=== PATIENT | female | born 1955 | race Caucasian/White ===

== ENCOUNTER 2024-10-16 16:46 | Inpatient (IN) | payer MEDICARE ==
[~2024-10-16] VITALS: Ht 165.1 cm; Wt 83.0 kg
[2024-10-16] MEDS ORDERED: LIDOCAINE 1%-EPI 1:100,000 20 ML VIAL ONE (17:49)
[2024-10-16] MEDS ORDERED: ACETAMINOPHEN ES 500 MG TABLET ONE (17:49)
[2024-10-16] MEDS ORDERED: TDAP [DIPH/PERTUSSIS/TET] 0.5 ML VIAL IM ONE (17:50)
[2024-10-16] MEDS: ACETAMINOPHEN ES 500 MG TABLET PO ONE (18:04)
[2024-10-16] MEDS: TDAP [DIPH/PERTUSSIS/TET] 0.5 ML VIAL IM ONE (18:06)
[2024-10-16] MEDS: LIDOCAINE 1%-EPI 1:100,000 20 ML VIAL TP ONE (18:08)
[2024-10-16] MEDS: LIDOCAINE HCL/PF 1% 30 ML VIAL TP ONE (18:30)
[2024-10-16] MEDS ORDERED: LIDOCAINE 1% INJ 50 ML MDV IJ ONE (19:45)
[2024-10-16 20:09] LABS: EOSINOPHILS % (AUTO) 0.2 % (0.0-6.0); HEMATOCRIT 40 % (33-45); HEMOGLOBIN 13.6 g/dL (11.5-14.8); LYMPHOCYTES # (AUTO) 0.3 K/uL (0.8-4.8); MEAN CORPUSCULAR HEMOGLOBIN 30 PG (26.0-33.0); MEAN CORPUSCULAR HGB CONC 34 g/dl (31.0-36.0); MEAN CORPUSCULAR VOLUME 88 fL (82-100); MONOCYTES # (AUTO) 1.1 K/uL (0.1-1.30); MONOCYTES % (AUTO) 7.1 % (2.0-12.0); NEUTROPHILS # (AUTO) 13.8 K/uL (1.8-8.9); NEUTROPHILS % (AUTO) 90.7 % (43.0-81.0); PLATELET COUNT (AUTO) 203 K/uL (150-450); RED CELL DISTRIBUTION WIDTH 12.8 % (11.5-15.0); WHITE BLOOD COUNT (AUTO) 15.2 K/uL (4.3-11.0)
[2024-10-16 20:21] LABS: CALCIUM, SERUM 8.6 mg/dL (8.5-10.1); CARBON DIOXIDE 32 mmol/L (21-32); CHLORIDE 99 mmol/L (98-107); CREATININE 1.1 mg/dL (0.6-1.3); GLUCOSE 128 mg/dL (74-106); SODIUM SERUM 135 mmol/L (136-145); UREA NITROGEN, BLOOD 23 mg/dL (7-18)
[2024-10-16 20:34] LABS: NT-PRO BNP 1282 pg/mL (0-125)
[2024-10-16 20:40] LABS: POTASSIUM 2.6 mmol/L (3.5-5.1)
[2024-10-16] MEDS: POTASSIUM CL. PREMIX PERIPHER. 50 ML IV SCH (21:15)
[2024-10-16] MEDS: POTASSIUM CHLORIDE 20 MEQ TAB.PRT.SR PO ONE (21:15)
[2024-10-16] MEDS ORDERED: ONDANSETRON HCL/PF 4 MG/2 ML VIAL IVP PRN (23:00)
[2024-10-16] MEDS ORDERED: MAG HYDROX/AL HYDROX/SIMETH 30 ML UDC PO PRN (23:00)
[2024-10-16] MEDS: IPRATROPIUM NEB FS 0.5 MG/2.5 ML AMPUL.NEB NEB ONE (23:15)
[2024-10-16] MEDS: ALBUTEROL FS 2.5 MG/3 ML VIAL.NEB NEB ONE (23:15)
[2024-10-16 23:20] VITALS: O2SAT 94
[2024-10-16] MEDS ORDERED: IPRATROPIUM NEB FS 0.5 MG/2.5 ML AMPUL.NEB ONE (23:20)
[2024-10-16] MEDS ORDERED: ALBUTEROL FS 2.5 MG/3 ML VIAL.NEB ONE (23:20)
[2024-10-16 23:35] VITALS: O2SAT 99
[2024-10-17] VITALS (7 sets, daily range): BP systolic 119–144; BP diastolic 64–94; TEMP 97.5–99.1; O2SAT 96–99
[2024-10-17] MEDS: ENOXAPARIN SODIUM 40 MG/0.4 ML DISP.SYRIN SQ SCH ×2 (01:30→21:19)
[2024-10-17] MEDS: HYDROCODONE/APAP 5/325MG TABLET PO PRN (01:57)
[2024-10-17 06:02] LABS: BASOPHILS % (AUTO) 0.5 % (0.0-2.0); EOSINOPHILS % (AUTO) 0.2 % (0.0-6.0); HEMATOCRIT 38 % (33-45); HEMOGLOBIN 12.8 g/dL (11.5-14.8); LYMPHOCYTES # (AUTO) 0.7 K/uL (0.8-4.8); LYMPHOCYTES % (AUTO) 7.6 % (20.0-44.0); MEAN CORPUSCULAR HEMOGLOBIN 30 PG (26.0-33.0); MEAN CORPUSCULAR HGB CONC 34 g/dl (31.0-36.0); MEAN CORPUSCULAR VOLUME 89 fL (82-100); MONOCYTES # (AUTO) 0.9 K/uL (0.1-1.30); MONOCYTES % (AUTO) 10.2 % (2.0-12.0); NEUTROPHILS # (AUTO) 7.3 K/uL (1.8-8.9); NEUTROPHILS % (AUTO) 81.5 % (43.0-81.0); PLATELET COUNT (AUTO) 191 K/uL (150-450); RED BLOOD CELL COUNT(AUTO) 4.24 MIL/uL (4.0-5.2); RED CELL DISTRIBUTION WIDTH 13.1 % (11.5-15.0); WHITE BLOOD COUNT (AUTO) 8.9 K/uL (4.3-11.0)
[2024-10-17] MEDS: AZITHROMYCIN 250 MG TABLET PO ONE (06:24)
[2024-10-17] MEDS: ACETAMINOPHEN 325 MG TABLET PO PRN (06:29)
[2024-10-17] MEDS ORDERED: IPRATROPIUM NEB FS 0.5 MG/2.5 ML AMPUL.NEB NEB PRN (06:30)
[2024-10-17] MEDS ORDERED: ALBUTEROL SULFATE 8 GM HFA.AER.AD IH PRN (06:30)
[2024-10-17] MEDS ORDERED: IPRATROPIUM BROMIDE 14 GM INHALER (or 12.9 GM) IH PRN (06:30)
[2024-10-17 07:06] LABS: CALCIUM, SERUM 8.2 mg/dL (8.5-10.1); CREATININE 1.3 mg/dL (0.6-1.3); MAGNESIUM 2.4 mg/dL (1.8-2.4); PHOSPHORUS 3.9 mg/dL (2.5-4.9); POTASSIUM 3.3 mmol/L (3.5-5.1)
[2024-10-17] MEDS ORDERED: HYDR25TA4 PO (08:28)
[2024-10-17] MEDS ORDERED: AMLO-212 PO (08:28)
[2024-10-17] MEDS: POTASSIUM CHLORIDE 20 MEQ TAB.PRT.SR PO ONE (09:19)
[2024-10-17] MEDS: AMLODIPINE BESYLATE 5 MG TABLET PO SCH (09:20)
[2024-10-18] VITALS: BP 130/90; TEMP 98.1; O2SAT 98
[2024-10-18 04:00] VITALS: BP 154/86; TEMP 98.1; O2SAT 93
[2024-10-18] MEDS: AZITHROMYCIN 250 MG TABLET PO SCH (06:10)
[2024-10-18 08:00] VITALS: BP 140/96; TEMP 98.7; O2SAT 96
[2024-10-18 08:20] VITALS: BP 140/96
[2024-10-18] MEDS: HYDROCHLOROTHIAZIDE 25 MG TABLET PO SCH (08:20)
[2024-10-18 10:36] LABS: CREATININE 0.9 mg/dL (0.6-1.3)
[2024-10-18 10:51] LABS: POTASSIUM 3.5 mmol/L (3.5-5.1)
[2024-10-18 11:23] LABS: THYROID STIMULATING HORMONE 1.41 uIU/mL (0.358-3.74)
== END 2024-10-18 12:45 | disposition home or self-care (01) | DRG 562 ==
LOC: ER 16:49 → TELE 10-17 00:53
PROVIDERS: ADMIT Nurse Practitioner Acute Care; ATTEND Internal Medicine
DX: S62.393A Other fracture of third metacarpal bone, left hand, initial encounter for closed fracture (principal); I21.A1 Myocardial infarction type 2; J96.01 Acute respiratory failure with hypoxia; S06.0XAA Concussion with loss of consciousness status unknown, initial encounter; D68.69 Other thrombophilia; S63.283A Dislocation of proximal interphalangeal joint of left middle finger, initial encounter; S01.81XA Laceration without foreign body of other part of head, initial encounter; E87.6 Hypokalemia; W10.9XXA Fall (on) (from) unspecified stairs and steps, initial encounter; D72.829 Elevated white blood cell count, unspecified; I10 Essential (primary) hypertension; J40 Bronchitis, not specified as acute or chronic; E66.01 Morbid (severe) obesity due to excess calories; Y93.89 Activity, other specified; Y92.009 Unspecified place in unspecified non-institutional (private) residence as the place of occurrence of the external cause; Z68.30 Body mass index [BMI] 30.0-30.9, adult; Z20.822 Contact with and (suspected) exposure to COVID-19; R40.2362 Coma scale, best motor response, obeys commands, at arrival to emergency department; R40.2142 Coma scale, eyes open, spontaneous, at arrival to emergency department; R40.2252 Coma scale, best verbal response, oriented, at arrival to emergency department
CPT/HCPCS: 36415; 70450-TC; 71045-TC; 73140-TC; 73610-TC; 80048-TC; 83735-TC; 83880; 84100-TC; 84439-TC; 84443-TC; 84484-TC; 85025-TC; 90715; 93307-TC; 97116-TC; 97530-TC; A6403; G0378; J1650; J3480; J3490